=== PATIENT | female | born 1995 | race African-American/Black ===

== ENCOUNTER 2019-11-29 00:16 | Emergency (ER) | payer BC ==
[~2019-11-29] VITALS: Ht 165.1 cm; Wt 104.3 kg
[2019-11-29 00:16] VITALS: BP 119/67
--- NOTE | 2019-11-29 00:18 | NUR ---
PT CAME TO THE ED C/O L ARM NUMBNESS X 2 DAYS AND ANXIETY. PT APPEARS TO BE VERY SAD, EMOTIONA. PT ALSO ENDORSES THAT THERAPEUTIC MEASURES DON'T WORK. PT AAOX4, RESPIRATIONS EVEN AND UNLABORED ON RA W AND NOTED. PT CONNECTED TO THE MONITOR AND POX
[2019-11-29] MEDS ORDERED: LORAZEPAM INJ 2 MG/ML VIAL ONE (00:56)
[2019-11-29] MEDS: LORAZEPAM INJ 2 MG/ML VIAL IM ONE (01:05)
--- NOTE | 2019-11-29 02:40 | NUR ---
Patient discharged to home in stable condition. Written and verbal after care instructions given. Patient verbalizes understanding of instruction.
== END 2019-11-29 02:40 | disposition home or self-care (01) ==
LOC: ER 00:16
DX: F41.9 Anxiety disorder, unspecified (principal); E03.9 Hypothyroidism, unspecified; R94.31 Abnormal electrocardiogram [ECG] [EKG]
CPT/HCPCS: 93005; 96372; 99283; J2060